=== PATIENT | female | born 1995 | race Caucasian/White ===

== ENCOUNTER 2021-01-17 09:07 | Outpatient (REF) | payer BC, SELFPAY ==
[2021-01-20 13:47] LABS: TS Negative Control Passed; TS Panel A 0; TS Panel B 1; TS Positive Control Passed; TSpotTB Negative (SeeBelow)
== END 2021-01-17 09:08 | disposition home or self-care (01) ==
LOC: HO.HMGCLDS 09:07
PROVIDERS: PCP Internal Medicine; Visit Provider Internal Medicine
DX: Z11.0 Encounter for screening for intestinal infectious diseases (principal)
CPT/HCPCS: 36415; 86481

== ENCOUNTER 2021-06-01 12:03 | Outpatient (REF) | payer BC, SELFPAY ==
[2021-06-01 13:47] LABS: Hemoglobin 14.7 g/dl (12.0-16.0); Mean Corpuscular HGB Conc 34.2 g/dl (31.0-35.0); Mean Corpuscular Hemoglobin 30.8 pg (27.0-33.0); Mean Corpuscular Volume 90.1 fL (80-98); Mean Platelet Volume 9.6 fL (9.4-12.3); Platelet Count 202 X10*3/uL (160-400); Red Blood Count 4.77 X10*6/uL (4.20-5.50); Red Cell Distribution Width 12.2 % (11.0-16.0); White Blood Count 6.5 X10*3/uL (4.8-10.8)
[2021-06-01 13:54] LABS: INTERNATIONAL NORM RATIO 1.1 (0.9-1.1)
[2021-06-01 13:57] LABS: Partial Thromboplastin Time 33.5 SEC (24.1-38.0)
[2021-06-01 14:14] LABS: Alanine Aminotransferase 21 U/L (0-31); Albumin Level 4.7 g/dL (3.5-5.0); Alkaline Phosphatase 38 U/L (39-117); Anion Gap 12 (12-20); Aspartate Amino Transferase 17 U/L (5-31); Bilirubin Total 0.6 mg/dL (0.0-1.0); Blood Urea Nitrogen 10 mg/dL (9-16); Calcium 9.7 mg/dL (8.4-10.2); Carbon Dioxide 24 mmol/L (22-29); Chloride 107 mmol/L (96-108); Cholesterol 165 mg/dL; Estimated Glomerular Filt Rate > 60; Glucose Fasting 85 mg/dL (60-99); HDL Cholesterol 51 mg/dL; LDL Cholesterol Calculated 101 mg/dl; Potassium 4.3 mmol/L (3.3-5.1); Sodium 139 mmol/L (135-145); Total Protein 7.3 g/dL (6.5-8.0); Triglycerides 67 mg/dL
== END 2021-06-01 12:04 | disposition home or self-care (01) ==
LOC: HO.HMGCLDS 12:03
PROVIDERS: PCP Internal Medicine; Visit Provider Internal Medicine
DX: Z00.00 Encounter for general adult medical examination without abnormal findings (principal); J35.01 Chronic tonsillitis
CPT/HCPCS: 36415; 80053; 80061; 85027; 85610; 85730

== ENCOUNTER 2022-02-13 12:45 | Outpatient (REF) | payer BC, SELFPAY ==
[2022-02-15 16:36] LABS: TS Negative Control Passed; TS Panel A 0; TS Panel B 0; TS Positive Control Passed; TSpotTB Negative (Negative)
== END 2022-02-13 12:46 | disposition home or self-care (01) ==
LOC: HO.HMGCLDS 12:45
PROVIDERS: PCP Internal Medicine; Visit Provider Internal Medicine
DX: Z11.1 Encounter for screening for respiratory tuberculosis (principal)
CPT/HCPCS: 36415; 86481

== ENCOUNTER 2022-09-07 13:21 | Emergency (ER) | payer OTHER, SELFPAY ==
[2022-09-07] MEDS: diphenhydrAMINE HCL 50 MG/ML VIAL IVPUSH (13:33)
[2022-09-07] MEDS: methylPREDNISolone Sod Succ 125 MG/2 ML VIAL IVPUSH (13:33)
[2022-09-07] MEDS: Famotidine/PF 20 MG/2 ML VIAL IVPUSH (13:34)
[2022-09-07 13:36] VITALS: BP 138/66; PULSE 112; RESP 18; TEMP 36.1; O2SAT 100; BMI 20.7
--- NOTE | 2022-09-07 15:40 | ED_ITS ---
HPI - Allergic Reaction General Chief complaint: Allergic Reaction Stated complaint: HIVES NUMBNESS Time Seen by Provider: 09/07/22 13:28 Source: patient Mode of arrival: ambulatory History of Present Illness HPI narrative: 27-year-old female ate lunch in the cafeteria and 30 minutes later developed significant facial swelling with scratchy throat some mild difficulty breathing as well as diffuse rash. Patient has no known allergies. Related Data Home Medications Medication Instructions Recorded Confirmed multivitamin 1 tab PO DAILY 06/01/21 09/08/21 Previous Rx's Medication Instructions Recorded fluticasone 100 mcg-salmeterol 50 1 inh inhalation BID #60 ea 09/08/21 mcg/dose blistr powdr for inhalation (Advair Diskus) albuterol sulfate 90 mcg/actuation 2 puff inhalation Q6H PRN 04/26/22 aerosol inhaler (ProAir HFA) shortness of breath or wheezing #8.5 grams nirmatrelvir 300 mg (150 mg See Rx Instructions PO .COMPLEX 08/11/22 x2)-ritonavir 100 mg tablet,dose #30 ea pack(EUA) (Paxlovid) epinephrine 0.3 mg/0.3 mL 0.3 mg (0.3 mL) IM Q4H PRN 09/07/22 injection, auto-injector (EpiPen anaphylaxis #2 ea 2-Lazaro) Allergies Allergy/AdvReac Type Severity Reaction Status Date / Time No Known Allergies Allergy Verified 09/08/21 11:35 [No Known Allergies*] Review of Systems Review of Systems: Pertinent positives and negatives as stated in HPI PMFSH Past Medical History Source: nursing notes reviewed Medical History Annual physical exam Asthma Seasonal allergies Tonsillitis, chronic Surgical History No pertinent past surgical history Family History Family History Mother No problems noted. Father Hyperlipidemia Social History Social History Housing: House Alcohol intake: never Patient Tobacco Use Status: Never used Tobacco Smoked in Last 30 Days: No e-Cigarette/Vaping Use: Never Used Use of substances other than those prescribed or required for medical reasons: No Advance Directives: No Patient : No Current occupational status: employed and student Physical Exam ED Vital Signs: Vital Signs - 24 hr 09/07/22 13:36 Temperature 97.0 F Pulse Rate 112 H Respiratory Rate 18 Blood Pressure 138/66 Pulse Oximetry 100 Oxygen Delivery Method Room Air BMI result Body Mass Index 20.7 VITAL SIGNS: Reviewed. GENERAL: Well developed, well nourished, in no acute distress. HEAD: Normocephalic/atraumatic EYES: PERRLA, EOMI, periorbital swelling EARS: Ext canals without abnormality, TMs non-bulging and non-erythematous NOSE: Nares patent bilateral OROPHARYNX: no oral lesions noted, posterior pharynx clear, no lip/tongue swelling but significant facial swelling NECK: Supple, no adenopathy LUNGS: Good inspiratory effort without stridor or wheeze. SpO2<100> CARDIOVASCULAR: Regular rate and rhythm without noted murmurs ABDOMEN: Soft, non-tender, non-distended with bowel sounds. MUSCULOSKELETAL: No tenderness, deformities, or effusions noted on gross inspection. EXTREMITIES: No cyanosis, clubbing or edema. SKIN: Inspection of the skin reveals significant urticaria rash NEUROLOGIC: Alert and oriented x 4. Strength and sensation to light touch were grossly intact x 4. Medications Administered Discontinued Medications Generic Name Dose Route Start Last Admin Trade Name Freq PRN Reason Stop Dose Admin Diphenhydramine HCl 50 mg 09/07/22 13:28 09/07/22 13:33 Diphenhydramine Hcl 50 Mg/Ml Vial IVPUSH 09/07/22 13:29 50 mg ONCE ONE Administration Famotidine 20 mg 09/07/22 13:28 09/07/22 13:34 Famotidine/Pf 20 Mg/2 Ml Vial IVPUSH 09/07/22 13:29 20 mg ONCE ONE Administration Methylprednisolone Sodium Succinate 125 mg 09/07/22 13:28 09/07/22 13:33 Methylprednisolone Sod Succ 125 Mg/2 Ml Vial IVPUSH 09/07/22 13:29 125 mg ONCE ONE Administration Medical Decision Making Medical Decision Making MDM Narrative: 27-year-old female with angioedema who was emergently treated with IV Benadryl/Pepcid/steroids although significant facial swelling no evidence of lip swelling or tongue swelling. Patient under observation, remains hemodynamically stable and did not need to administer EpiPen. Unfortunately, there is no idea what patient is allergic to and she will be sent home with an EpiPen. 1545: On re-evaluation the rash has completely resolved, patient no longer is feeling a scratchy throat or lip tingling, she remains hemodynamically stable will be discharged home. Critical Care Time Critical Care Time Critical Care Time: Yes Total Critical Care Time: 30 Attestation: I personally attest to this time spent taking care of the patient. Discharge Plan Discharge Clinical Impression: Angioedema, Allergy, food Patient Disposition: Home, Self-Care Instructions: Food Allergy (ED), Angioedema (ED) Additional Instructions: 1. Recommend [id number] Benadryl over the next 24 hours. 2. You have been sent home with an EpiPen as it is unclear what you were allergic to. 3. Please follow-up with primary care provider in the next 1-2 days for re- evaluation further outpatient management. Return to the ER for any worsening symptoms. Prescriptions: New epinephrine [EpiPen 2-Lazaro] 0.3 mg/0.3 mL auto-injector 0.3 mg IM Q4H PRN (Reason: anaphylaxis) Qty: 2 0RF No Action albuterol sulfate [ProAir HFA] 90 mcg/actuation HFA aerosol inhaler 2 puff inhalation Q6H PRN (Reason: shortness of breath or wheezing) Qty: 8.5 5RF Paxlovid (EUA) 300 mg (150 mg x 2)-100 mg tablets,dose pack See Rx Instructions PO .COMPLEX Qty: 30 0RF Rx Instructions: take TWO 150 mg tablets of nirmatrelvir with ONE 100 mg tablet of ritonavir twice daily for 5 days PO fluticasone propion-salmeterol [Advair Diskus] 100-50 mcg/dose blister with device 1 inh inhalation BID Qty: 60 0RF multivitamin Tablet 1 tab PO DAILY Referrals: Mya Warren MD [Primary Care Provider] - Stand Alone Forms: Work/School Release
--- NOTE | 2022-09-07 16:09 | PC.NURSE ---
Patient a/ox4 . VSS . . Went over discharge instruction instructions as ordered by provider . patient to follow up with primary care . patient to return if symptoms worsen . no questions at this time .
== END 2022-09-07 16:12 | disposition home or self-care (01) ==
PROVIDERS: Emergency Provider Student in an Organized Health Care Education/Training Program; PCP Internal Medicine
DX: T78.1XXA Other adverse food reactions, not elsewhere classified, initial encounter (principal); T78.3XXA Angioneurotic edema, initial encounter; X58.XXXA Exposure to other specified factors, initial encounter
CPT/HCPCS: 96374; 96375; 99284; J1200; J2930

== ENCOUNTER 2022-11-03 08:24 | Emergency (ER) | payer OTHER, SELFPAY ==
[2022-11-03 08:34] VITALS: BP 134/64; PULSE 84; RESP 18; TEMP 36.8; O2SAT 99; BMI 20.1
--- NOTE | 2022-11-03 09:06 | ED.GENADULT ---
HPI - General Adult General Chief complaint: Eye Problems Stated complaint: swollen R eyelid Time Seen by Provider: 11/03/22 09:03 Source: patient Mode of arrival: ambulatory Limitations: no limitations History of Present Illness HPI narrative: Patient is a 27 year old assigned female at with a history of asthma and allergies presenting to the emergency department today with right eye lid swelling. Patient states that her right eye lid has been somewhat swollen and painful. Patient denies any dizziness, lightheadedness, abdominal pain, nausea, vomiting, fever, chills, blurry vision, double vision, loss of vision, chest pain, difficulty breathing, shortness of breath, back pain, night sweats, pain with urination, increased urinary frequency, increased urinary urgency, blood in her urine or stool, syncope or a near syncopal episode, recent trauma or falls, bowel incontinence, bladder incontinence, bowel retention, bladder retention, or any other complaints at this time. Onset (ago): day(s) (1) Location: eyes (right) Radiation: non-radiation Severity: mild Severity scale (1-10): 2 Relieving factors: none Exacerbating factors: none Associated symptoms: denies other symptoms Treatments prior to arrival: none Related Data Home Medications Medication Instructions Recorded Confirmed multivitamin 1 tab PO DAILY 06/01/21 09/08/21 Previous Rx's Medication Instructions Recorded fluticasone 100 mcg-salmeterol 50 1 inh inhalation BID #60 ea 09/08/21 mcg/dose blistr powdr for inhalation (Advair Diskus) albuterol sulfate 90 mcg/actuation 2 puff inhalation Q6H PRN 04/26/22 aerosol inhaler (ProAir HFA) shortness of breath or wheezing #8.5 grams nirmatrelvir 300 mg (150 mg See Rx Instructions PO .COMPLEX 08/11/22 x2)-ritonavir 100 mg tablet,dose #30 ea pack(EUA) (Paxlovid) epinephrine 0.3 mg/0.3 mL 0.3 mg (0.3 mL) IM Q4H PRN 09/07/22 injection, auto-injector (EpiPen anaphylaxis #2 ea 2-Lazaro) Allergies Allergy/AdvReac Type Severity Reaction Status Date / Time No Known Allergies Allergy Verified 09/08/21 11:35 [No Known Allergies*] Review of Systems Constitutional: Constitutional: Reports no additional constitutional complaints, Denies chills, Denies fever(s) and Denies night sweats Eyes: Eyes: Reports no additional eye complaints, Denies blurry vision, Denies change in vision, Denies diplopia, Denies eye discharge, Denies loss of vision and Denies eye pain ENT: Denies dizziness Comments: right eye lid swelling / pain Cardiovascular: Cardiovascular: Reports no additional cardiovascular complaints, Denies chest pain, Denies lightheadedness, Denies Loss of Consciousness and Denies dyspnea Respiratory: Respiratory: Reports no additional respiratory complaints and Denies dyspnea Gastrointestinal: Gastrointestinal: Reports no additional gastrointestinal complaints, Denies abdominal pain, Denies melena, Denies hematochezia, Denies change in bowel habits and Denies change in stool character Genitourinary: Genitourinary: Denies hematuria, Denies urinary frequency, Denies dysuria, Denies urinary incontinence, Denies urinary hesitancy and Denies urinary urgency Musculoskeletal: Musculoskeletal: Reports no additional musculoskeletal complaints, Denies numbness and Denies tingling Neurologic: Denies dizziness, Denies loss of vision, Denies numbness and Denies tingling Psychiatric: Psychiatric: Reports no additional psychiatric complaints Endocrine: Endocrine: Reports no additional endocrine complaints Hematologic/Lymphatic: Hematologic/Lymphatic: Reports no additional hematologic/lymphatic complaints Allergic/Immunologic: Allergic/Immunologic: Reports no additional allergic/immunologic complaints [facility] Past Medical History Attestation statement: The following information was validated with the patient. Source: old records reviewed and nursing notes reviewed Medical History Annual physical exam Asthma Seasonal allergies Tonsillitis, chronic Surgical History (Reviewed 11/03/22 @ 11: by ISAAC Pink) No pertinent past surgical history Family History Family History (Reviewed 11/03/22 @ 11: by ISAAC Pink) Mother No problems noted. Father Hyperlipidemia Social History Social History (Reviewed 11/03/22 @ 11: by ISAAC Pink) Housing: House Alcohol intake: never Patient Tobacco Use Status: Never used Tobacco e-Cigarette/Vaping Use: Never Used Advance Directives: Yes Advance Directives Information Provided: No Advance Directives on File: No Current occupational status: employed and student Physical Exam ED Vital Signs: Vital Signs - 24 hr 11/03/22 08:34 Temperature 98.2 F Pulse Rate 84 Respiratory Rate 18 Blood Pressure 134/64 Pulse Oximetry 99 Oxygen Delivery Method Room Air BMI result Body Mass Index 20.1 Const General: cooperative, no acute distress, alert and awake Nutritional Appearance: well nourished Orientation/consciousness: patient oriented x3 Limitations: no limitations HENMT Head: Yes normal to inspection and Yes atraumatic Ears: hearing grossly normal bilaterally and external ears normal General nose exam: Normal external nose present, no nasal discharge noted and no epistaxis Face and sinus: Yes normal facial exam, No abrasion and No laceration Mouth: Normal oral and palatal mucosa present, no drooling and no muffled voice Eyes Periorbital: periorbital findings normal Eyelids: Yes other (minimal redness present to the right upper eyelid, no fluctuance) Conjunctivae: conjunctivae normal Pupils: Equal, round and reactive pupils present EOM: EOMs intact bilaterally Neck Neck: Yes normal visual inspection, Yes full ROM and Yes no lymphadenopathy Chest Chest palpation & inspection: normal inspection of the chest Resp Effort & Inspection: normal respiratory effort and able to speak in complete sentences Auscultation: clear to auscultation bilaterally Cardio Rate: regular rate Rhythm: regular rhythm GI Inspection: Yes normal to inspection Neuro General: patient oriented x3 and moves all extremities Cranial nerves: Yes Equal, round and reactive pupils present Cognition (Neuro): normal cognition Motor exam (neuro): 5/5 motor strength present throughout Sensory Exam: Normal double simultaneous stimulation for sensation Coordination: [id number] test normal Extrem General: Yes normal to inspection, Yes full ROM and Yes capillary refill normal Psych Appearance: grossly normal Mental Status: mental status grossly normal Affect: normal affect Attitude: cooperative Thought process: Normal thought process present Thought content: Normal thought content present Insight: Good insight present (Psych) Medical Decision Making Medical Decision Making MDM Narrative: Patient is a 27 year old assigned female at with a history of allergies and asthma presenting to the emergency department today with right eye lid swelling and pain. Patient's physical exam showed minimal swelling and redness to the right upper eye lid with no fluctance. Patient's clinical presentation is most consistent with a stye. I explained my physical exam findings to the patient. I answered all questions asked by the patient. I encouraged the patient to apply warm compresses to the effected area. I stressed the importance of the patient taking her medication as prescribed. I stressed the importance of the patient following up with her primary care provider. I stressed the importance of the patient returning to the emergency department immediately if her symptoms were to worsen or if she were to develop any dizziness, shortness of breath, difficulty breathing, chest pain, blurry vision, loss of vision, nausea, vomiting, abdominal pain, fever, chills, back pain, or any other complaints. Patient verbalized agreement and understanding with this treatment plan and discharge. Differential Diagnosis Differential Diagnoses: The differential diagnosis associated with the presentation includes stye Discharge Plan Discharge Clinical Impression: Stye Patient Disposition: Home, Self-Care Instructions: Glory (ED) Additional Instructions: Follow up with your primary care provider. Return to the emergency department immediately if your symptoms worsen or if you develop any dizziness, shortness of breath, difficulty breathing, chest pain, blurry vision, loss of vision, nausea, vomiting, abdominal pain, fever, chills, back pain, or any other complaints. Prescriptions: No Action albuterol sulfate [ProAir HFA] 90 mcg/actuation HFA aerosol inhaler 2 puff inhalation Q6H PRN (Reason: shortness of breath or wheezing) Qty: 8.5 5RF Paxlovid (EUA) 300 mg (150 mg x 2)-100 mg tablets,dose pack See Rx Instructions PO .COMPLEX Qty: 30 0RF Rx Instructions: take TWO 150 mg tablets of nirmatrelvir with ONE 100 mg tablet of ritonavir twice daily for 5 days PO epinephrine [EpiPen 2-Lazaro] 0.3 mg/0.3 mL auto-injector 0.3 mg IM Q4H PRN (Reason: anaphylaxis) Qty: 2 0RF fluticasone propion-salmeterol [Advair Diskus] 100-50 mcg/dose blister with device 1 inh inhalation BID Qty: 60 0RF multivitamin Tablet 1 tab PO DAILY Referrals: Mya Warren MD [Primary Care Provider] - Stand Alone Forms: Work/School Release Interventions: ED Discharge Assessment Last Done: 11/03/22 09:31 Discharge Date/Time: 11/03/22 09:32 Print Language: Azeri
== END 2022-11-03 09:32 | disposition home or self-care (01) ==
PROVIDERS: Emergency Provider Emergency Medicine; PCP Internal Medicine
DX: H00.011 Hordeolum externum right upper eyelid (principal); J45.909 Unspecified asthma, uncomplicated
CPT/HCPCS: 99282

== ENCOUNTER → 2022-12-22 10:24 | Outpatient (BNVA) | payer OTHER, SELFPAY | PROVIDERS: PCP Internal Medicine; Visit Provider Internal Medicine | DX: Z13.89 Encounter for screening for other disorder (principal) | CPT/HCPCS: 99202 ==

== ENCOUNTER 2023-04-09 13:32 | Emergency (ER) | payer OTHER, SELFPAY | END 2023-04-09 14:03 | disposition left against medical advice (07) | PROVIDERS: Emergency Provider Emergency Medicine; PCP Internal Medicine | DX: R20.0 Anesthesia of skin (principal); Z53.21 Procedure and treatment not carried out due to patient leaving prior to being seen by health care provider ==

== ENCOUNTER 2023-12-31 08:12 | Outpatient (AMB) | payer OTHER, SELFPAY ==
--- NOTE | 2023-12-31 08:31 | AM.OFFWIN_ITS ---
Intake Vital Signs 12/31/23 08:32 Height 5 ft 2 in Weight 110 lb BMI 20.1 BP 108/62 Blood Pressure Location Rt brachial Position Sitting Pulse 135 H Pulse Source Pulse Oximeter Temp 101.1 F H Temp Source Oral Pulse Oximetry (%) 97 Intake Visit Reasons: EP body aches sore throat congestion Intake Note: pt is here body aches, cough, chest congestion. has been exposed to the rhinovirus Patient Tobacco Use Status: Never used Tobacco Allergies No Known Allergies [No Known Allergies*] Allergy (Verified 12/31/23 08:33) Do you need a note to return to daycare/school/sports/work: Yes HPI HPI Comments History of Present Illness Details Patient presents to the walk in for sick visit Endorses 3 days of cough, fever, congestion, fatigue, bodyaches. She was around her niece last week who is positive for rhinovirus Denies chest pain, shortness of breath, palpitations, syncope, weakness Denies nausea vomiting or diarrhea History of asthma, states feels like it has been worse since she got sick. Needs refills of her albuterol and Advair. Called out sick from work, requesting work note [facility] Medical History Annual physical exam Asthma Seasonal allergies Tonsillitis, chronic Surgical History No pertinent past surgical history Family History Mother No problems noted. Father Hyperlipidemia Social History Housing: House Alcohol intake: never Patient Tobacco Use Status: Never used Tobacco e-Cigarette/Vaping Use: Never Used Current occupational status: employed and student Review of Systems Const All systems reviewed & are unremarkable except as noted in HPI and below Physical Exam Vital Signs: Last Vital Signs Temp 101.1 F H 12/31/23 08:32 Pulse 135 H 12/31/23 08:32 BP 108/62 12/31/23 08:32 Pulse Ox 97 12/31/23 08:32 BMI result Body Mass Index 20.1 General: awake, alert, oriented. Answers questions appropriately. Fully engaged in examination. Skin: warm, dry, intact HEENT: TMs intact bilaterally, no redness. Posterior pharynx without erythema or exudate. Sclera without icterus or injection. Cardiac: External chest normal in appearance. Respiratory: +cough. LSCTAB. Abdomen: without gross distension. Neurological: Oriented to person, place, time and situation. Thought process intact. Psychiatric: Appropriate mood and affect. Good judgment and insight. Assessment & Plan Assessment & Plan (1) URI (upper respiratory infection): Code(s): J06.9 - Acute upper respiratory infection, unspecified Plan URI, no abx warranted. Benzonatate 100mg po bid as needed Albuterol and Advair refill sent. Patient advised on use Rest, drink plenty of fluids, tylenol or motrin as needed. Recommend taking OTC nasal decongestants. Work note provided Follow up with pcp or in clinic for any new or worsening symptoms. Go to ER for shortness of breath, chest pain, palpitations, weakness, dizziness. Medications: New benzonatate 100 mg PO BID PRN 20 caps 0RF cough Refilled fluticasone propion-salmeterol 100-50 mcg/dose (Advair Diskus) 1 inh inhalation BID 60 ea 0RF albuterol sulfate 90 mcg/actuation (ProAir HFA) 2 puffs inhalation Q6H PRN 8.5 grams 0RF shortness of breath or wheezing Coding Level of Care Code Est Pt Level 3 (97964) Diagnoses URI (upper respiratory infection) J06.9
[2023-12-31 08:32] VITALS: BP 108/62; PULSE 135; TEMP 38.4; O2SAT 97; BMI 20.1
== END 2023-12-31 09:44 | disposition home or self-care (01) ==
PROVIDERS: PCP Internal Medicine; Visit Provider Registered Nurse Emergency
DX: J06.9 Acute upper respiratory infection, unspecified (principal)
CPT/HCPCS: 99213